=== PATIENT | male | born 2005 | race Two or more races ===

== ENCOUNTER 2024-07-02 17:10 | Outpatient (OUT) | payer OTHER, BC, SELFPAY ==
--- NOTE | 2024-07-02 | XR_ITS ---
The [address] [address] Patient Name: MONROE SCHERER MRN: [id number] date: 2005 Sex: M Assigned Patient Location: [facility] Current Patient Location: RAD Accession/Order Number: [id number] Exam Date: 07/02/2024 17:25 Report Date: 07/02/2024 20:15 At the request of: DAVID FLYNN Procedure: XR elbow RT min 3V EXAM: XR elbow RT min 3V HISTORY: M77.00 Golfer's elbow COMPARISON: None. TECHNIQUE: 3 views of the right elbow were obtained. FINDINGS: There is no evidence of an acute fracture or dislocation. The joint spaces are intact. No osteochondral injury is identified. There is no evidence of a joint effusion. The soft tissues appear intact. XR/XR elbow RT min 3V IMPRESSION: No acute fracture or dislocation. The joint spaces are intact and there is no evidence of a joint effusion. Electronically authenticated by: JESUS RESENDIZ Date: 07/02/2024 20:15
== END 2024-07-02 17:11 | disposition home or self-care (01) ==
PROVIDERS: PCP Family Medicine; Visit Provider Family Medicine
DX: M77.00 Medial epicondylitis, unspecified elbow (principal)
CPT/HCPCS: 73080

== ENCOUNTER 2024-08-07 09:28 | Outpatient (OUT) | payer OTHER, BC, SELFPAY ==
--- NOTE | 2024-08-07 | MR_ITS ---
The [address] [address] Patient Name: MONROE SCHERER MRN: [id number] date: 2005 Sex: M Assigned Patient Location: MRI Current Patient Location: MRI Accession/Order Number: [id number] Exam Date: 08/07/2024 09:40 Report Date: 08/07/2024 16:20 At the request of: DAVID FLYNN Procedure: MR elbow RT wo con EXAM: MR elbow RT wo con HISTORY: Golfers elbow M77.00 COMPARISON: 07/02/2024 TECHNIQUE: MRI images obtained with multiple sequences. MRI of the right elbow without contrast. Sequences obtained by standard department protocol. FINDINGS: Biceps tendon is intact. Brachialis tendon is intact. Triceps tendon is intact. Small elbow joint effusion. No acute bone marrow edema. Common extensor and common flexor tendon origins are intact. Normal alignment of the elbow. No significant joint degeneration. No full-thickness chondral loss. Ulnar collateral ligament is intact. Lateral ulnar collateral ligament and radial collateral ligaments are intact. Ulnar nerve is normal in size and signal within the carpal tunnel. MR/MR elbow RT wo con IMPRESSION: 1. Biceps tendon and triceps tendons are intact. 2. No acute fractures. 3. Other findings as described. Electronically authenticated by: DAVONTE QUICK Date: 08/07/2024 16:20
--- OUTSIDE RECORDS SUMMARY | 2024-08-07 09:33 | XMS_ITS | CCD ---
Author Organization [facility] Care Team Providers Care Food Services Manager Name Role Phone Leny Christina Unavailable RINA Wray, DR HERNANDEZ Admitting Unavailable HOY ., DR HERNANDEZ Attending Unavailable HOY ., DR HERNANDEZ Primary Care Unavailable HOY ., DR HERNANDEZ Primary Care Unavailable DIAB ., ELIECER Attending Unavailable DIAB ., ELIECER Admitting Unavailable FERNANDO TAPIA Consulting Unavailable DIAB ., ELIECER Consulting Unavailable HOY ., DR HERNANDEZ Attending Unavailable HOY ., DR HERNANDEZ Consulting Unavailable HOY ., DR HERNANDEZ Primary Care Unavailable HOY ., DR HERNANDEZ Admitting Unavailable NEWBERRY, DR JD Zapien Consulting Unavailable Medications Current Medications Medication Drug Class(es) Dates Sig (Normalized) Sig (Original) ibuprofen 600 mg oral tablet (3 sources) Nonsteroidal Anti-inflammatory Drug Start: 01-03-2023 take 1 tablet by mouth three times daily at mealtime as needed Ibuprofen 600 MG 1 tablet with food or milk as needed Orally Three times a day for 30 days Dec, Active Problems Active Problems Problem Classification Problem Date Documented Da te Episodic/Chronic E Codes: Natural/environment (1 source) Other and unspecified overexertion or strenuous movements or postures, initial encounter; Translations: [OTH AND UNS OVREXRT/STRN MVMT/POS INT] Onset: 12-31-2022 Episodic E Codes: Unspecified (1 source) Activity, basketball; Translations: [ACTIVITY BASKETBALL] Onset: 12-31-2022 Episodic Joint disorders and dislocations; trauma-related (1 source) Unspecified dislocation of left little finger, initial encounter; Translations: [Unspecified dislocation of left little finger, initial encounter] Onset: 02-07-2019 Episodic Other connective tissue disease (1 source) Pain in left finger(s); Translations: [Pain in left finger(s)] Onset: 02-07-2019 Episodic Other non-traumatic joint disorders (3 sources) Effusion, right ankle; Translations: [EFFUSION RIGHT ANKLE] Onset: 12-29-2022 Episodic Sprains and strains (3 sources) Sprain of other ligament of right ankle, initial encounter; Translations: [Sprain of other ligament of right ankle, subsequent encounter] Onset: 12-31-2022 Episodic Past or Other Problems Problem Classification Problem Date Documented Da te Episodic/Chronic Other non-traumatic joint disorders (4 sources) Pain in left knee; Translations: [PAIN IN LEFT KNEE] Onset: 09-13-2022 Episodic Results Test Name Value Interpretation Reference Range Facil ity XR ANKLE RT MIN 3 VIEWSon XR ANKLE RT MIN 3 VIEWS XR ANKLE RT MIN 3 VIEWS: HISTORY: Pain. COMPARISON: None available. TECHNIQUE: 3 radiographic view(s) obtained. FINDINGS: BONES/JOINT SPACES: There is no acute fracture or dislocation. Joint spaces appear normal. There are no other significant findings. SOFT TISSUES: Mild soft tissue swelling anterior to the distal tibia. IMPRESSION: No acute osseous abnormality. Electronically authenticated by: FERNANDO TAPIA Date: 2022-12-29 15:40 Normal [facility] Release of Informationon Release of Information [id number] #1.00OTGTIFF [facility] Outside Recordson 01-26-2021 Outside Records [id number] [facility]2020 Patient Letter [id number] [facility] VIEWS)on 02-08-2019 XR HAND LEFT (MIN 3 VIEWS) Patient : 2005 Age: 13 years Gender: Male Order Date: 02/07/2019 9:00 PM EXAM: XR HAND LEFT (MIN 3 VIEWS) COMPARISON: None INDICATION: Pain VIEWS: Three views of the hand FINDINGS: No acute fracture or dislocation. Normal carpal bone alignment. There is soft tissue swelling involving the fifth digit. IMPRESSION: No fracture or dislocation. Soft tissue swelling is seen involving the fifth digit. Short-term follow-up radiographs may be helpful for further evaluation or MRI if clinically indicated. Interpreted by: David Burleson DO Signed by: David Burleson DO 02/07/19 Final result Normal [facility] Vital Signs Date Time Vital Sign Value Performing Clinician Alisha rebeccaangelic 01-03-2023 14:30-0500 Body height 177.8 cm Leny Christina Other [facility] Other 01-03-2023 14:30-0500 Body mass index (BMI) [Ratio] 27.98 kg/m2 Leny Christina Other [facility] Other 01-03-2023 14:30-0500 Body weight 88.45 kg Leny Christina Other [facility] Other Encounters Encounter Date Encounter Type Care Provider Facility Start: 02-07-2023 End: 02-07-2023 ambulatory Leny Christina Other [facility] Other Start: 02-07-2023 Telephone encounter Leny Christina [facility] Start: 01-14-2023 End: 01-14-2023 ambulatory Leny Christina Other [facility] Other Start: 01-14-2023 Office outpatient vi sit 15 minutes Leny Christina [facility] Start: 01-03-2023 End: 01-03-2023 ambulatory Leny Christina Other [facility] Other Start: 01-03-2023 Office outpatient ne w 30 minutes Leny Christina [facility] Start: 12-29-2022 End: 12-29-[address] DAVID FLYNN . Facility: Start: 09-13-2022 End: 03-28-[address] DAVID FLYNN . Facility: Start: 09-06-2022 End: 09-07-[address] DAVID FLYNN . Facility: Start: 02-07-2019 End: 02-08-2019 Emergency department patient visit [facility] Procedures Date Procedure Procedure Detail Performing Clinician Start: 02-08-2019 APPLICATION FINGER S PLINT STATIC Start: 02-07-2019 Radex hand minimum 3 views Payers Date Payer Category Payer Unknown [id number] 2018 Unknown [id number] 1978 Unknown [id number] 1978 Unknown [id number] 1978 Unknown [id number] 1978 Unknown [id number] 2.16.84 [id number] [facility] [id number] 1960 Unknown [id number] Social History Date Type Detail Facility Sex Assigned At [facility] Other Evaluation note 01-14-2023 Note Date & Type Note Facility 01-14-2023 Evaluation note Encounter Date Diagnosis Assessment Notes Dec, Sprain of other ligament of right ankle, subsequent encounter (ICD-10 - S93.491D) Physical exam preformed today, we will have the patient continue with gentle ROM exercises. He is to wear an moni wrap, he may come out of the walking boot and into a regular shoe whenever he feels comfortable to do so. He may f/u on a PRN basis. [facility] Other Evaluation note 01-03-2023 Note Date & Type Note Facility 01-03-2023 Evaluation note Encounter Date Diagnosis Assessment Notes Dec, Sprain of other ligament of right ankle, initial encounter (ICD-10 - S93.491A) Extensive discussion about current condition and treatment options available. The patient appears to have suffered an ankle sprain. We will allow progressive gentle ankle motion as pain allows as well as gentle weight bearing. Patient placed in cam walker boot. We discussed the importance of icing and elevation of the leg above the heart to prevent swelling. We discussed that this injury will most likely cause pain for many weeks. A prescription for anti-inflammato ricarda was provided with instructions on use. Rx Ibuprofen 600mg [facility] Other Clinical Note 09-06-2022 Note Date & Type Note Facility 09-06-2022 Note PROCEDURE: XR KNEE L T 4V or > COMPARISON: None. HISTORY: Pain of left knee region FINDINGS: BONES:No fracture, acute abnormality, or significant arthropathy. SOFT TISSUES:Negative. No visible soft tissue swelling. EFFUSION:None visible. OTHER: Negative. IMPRESSION: No acute abnormality Electronically authenticated by: JD SCHROEDER Date: 2022-09-06 19:04 [facility] Evaluation note Note Date & Type Note Facility Evaluation note No Information [facility] Other Summary Purpose Family History No Family History Records FoundNo Family History Records FoundNo Family History Records Found Advance Directives No Advanced Directives Records FoundNo Advanced Directives Records FoundNo Advanced Directives Records Found Additional Source Comments (unrecognized sect ion and content) No Status Records FoundNo Status Records FoundNo Status Records Found INFORMATION SOURCE (unrecogn ized section and content) DATE CREATED AUTHOR 02/08/2019 [facility] DATE CREATED AUTHOR AUTHOR'S ORGANIZ ATION 03/23/2021 [facility] DATE CREATED AUTHOR AUTHOR'S ORGANIZ ATION 03/28/2023 [facility] REASON FOR VISIT (unrecogniz ed section and content) Right Ankle InjuryRecheck Ri ght Ankle SprainRELEASE NOTE FOR RECORDS PERTAINING TO PATIENTS WHO ARE OR HAVE BEEN ENROLLED IN A CHEMICAL DEPENDENCY/SUBSTANCEABUSE PROGRAM, SOME INFORMATION MAY BE OMITTED. This clinical summary was aggregated from multiple sources. Caution should be exercised in using it in the provision of clinical care. This summary normalizes information from multiple sources, and as a consequence, information in this document may materially change the coding, format and clinical context of patient data. In addition, data may be omitted in some cases. CLINICAL DECISIONS SHOULD BE BASED ON THE PRIMARY CLINICAL RECORDS. [facility] [employer] [facility]. provides no warranty or guarantee of the accuracy or completeness of information in this document.
== END 2024-08-07 09:29 | disposition home or self-care (01) ==
LOC: MRI 09:29
PROVIDERS: PCP Family Medicine; Visit Provider Family Medicine
DX: M77.00 Medial epicondylitis, unspecified elbow (principal)
CPT/HCPCS: 73221

== ENCOUNTER 2024-08-20 09:56 | Outpatient (RCR) | payer OTHER, BC, SELFPAY | END 2024-08-21 13:47 | disposition home or self-care (01) | LOC: OT 09:56 | PROVIDERS: PCP Family Medicine; Visit Provider Family Medicine | DX: M25.529 Pain in unspecified elbow (principal) | CPT/HCPCS: 97165 ==